=== PATIENT | male | born 1950 | race Caucasian/White ===

== ENCOUNTER 2016-05-25 12:58 | Emergency (ER) | payer BC ==
--- NOTE | 2016-05-25 13:26 | Emergency Department Record ---
History of Present Illness - General Chief complaint: Allergic Reaction Stated complaint: REACTION TO MEDS Time Seen by Provider: 05/25/16 13:23 Source: Patient Mode of Arrival: Ambulatory Limitations: No limitations - History of Present Illness Initial Comments: 65 yo male presents to ED with a CC of muscles aches and pain symptoms after taking (1) dose of atorvastatin that he was prescribed this week. Patient denies fevers, chills, or recent illness. Patient reports a history of resting tremor to the LUE, and elevated cholesterol. MD Complaint: Other Onset/Timin -: Days(s) Exposure: Medication Symptoms: Other (muscle aches) Severity: Moderate Treatment Prior to Arrival: Other (oral fluids.) Previous Allergy History: None - Related Data Home Medications Medication Instructions Recorded Confirmed Last Taken Aspirin [Adult Low Dose Aspirin EC] 81 mg PO DAILY 05/25/16 05/25/16 1 Day Ago Atorvastatin Calcium 20 mg PO DAILY 05/25/16 05/25/16 1 Day Ago Cholecalciferol (Vitamin D3) 2,000 unit PO DAILY 05/25/16 05/25/16 1 Day Ago [Vitamin D3] Propranolol HCl 10 mg PO DAILY 05/25/16 05/25/16 1 Day Ago Allergies Allergy/AdvReac Type Severity Reaction Status Date / Time amoxicillin Allergy CONSTIPATIO Verified 05/25/16 13:31 N atorvastatin Allergy HYPERSENSIT Verified 05/25/16 13:31 IVITY Review of Systems Constitutional: Denies: Chills, Fever, Malaise, Night sweats Eyes: Denies: Eye discharge, Eye pain ENT: Denies: Congestion, Ear pain, Epistaxis Respiratory: Denies: Cough, Dyspnea, Hemoptysis Cardiovascular: Denies: Chest pain, Dyspnea on exertion, Palpitations, Syncope Endocrine: Denies: Fatigue, Heat or cold intolerance Gastrointestinal: Denies: Abdominal pain, Nausea, Vomiting Genitourinary: Denies: Incontinence, Retention Musculoskeletal: Reports: Myalgia. Denies: Arthralgia, Back pain Skin: Denies: Bruising, Change in color Neurological: Denies: Abnormal gait, Confusion, Headache, Seizure Psychiatric: Denies: Anxiety Hematological/Lymphatic: Denies: Anemia, Blood Clots Past Medical History - SOCIAL HISTORY Smoking Status: Never smoker - RESPIRATORY Hx Respiratory Disorders: No - CARDIOVASCULAR Hx Cardio Disorders: No - NEURO Hx Neuro Disorders: Yes Hx Headaches: Yes (sinus h.a.) Comment:: c/o involuntary tremors Left arm/leg-on beta radha - GI Hx GI Disorders: Yes Hx Rectal Bleeding: Yes - Hx Genitourinary Disorders: No - ENDOCRINE Hx Endocrine Disorders: No - MUSCULOSKELETAL Hx Musculoskeletal Disorders: No - PSYCH Hx Psych Problems: No Family Medical History Hx Cancer: Grandparents *Cancer Comment: breast cancer Physical Exam - General General Appearance: Alert, Oriented x3, Cooperative, No acute distress Limitations: No limitations - Head Head exam: Atraumatic, Normocephalic, Normal inspection Head exam detail: negative: Abrasion, Contusion, Renee's sign, General tenderness, Hematoma, Laceration - Eye Eye exam: Normal appearance. negative: Conjunctival injection, Periorbital swelling, Periorbital tenderness, Scleral icterus - ENT Ear exam: negative: Auricular hematoma, Auricular trauma Nasal Exam: negative: Active bleeding, Discharge, Dried blood, Foreign body Mouth exam: negative: Drooling, Laceration, Muffled voice, Tongue elevation - Neck Neck exam: Normal inspection. negative: Meningismus, Tenderness - Respiratory Respiratory exam: Normal lung sounds bilaterally. negative: Rales, Respiratory distress, Rhonchi, Stridor - Cardiovascular Cardiovascular Exam: Regular rate, Normal rhythm, Normal heart sounds - GI/Abdominal GI/Abdominal exam: Soft. negative: Rebound, Rigid, Tenderness - Rectal Rectal exam: Deferred - exam: Deferred - Extremities Extremities exam: Normal inspection. negative: Calf tenderness, Pedal edema, Tenderness - Back Back exam: Denies: CVA tenderness (R), CVA tenderness (L) - Neurological Neurological exam: Alert, Normal gait, Oriented X3 - Psychiatric Psychiatric exam: Normal affect, Normal mood - Skin Skin exam: Normal color. negative: Abrasion Type of lesion: negative: abrasion Course - Reevaluation(s) Reevaluation #1: 05/25/16 14:22 Labs reviewed and are grossly unremarkable for an acute process. Reevaluation #2: 05/25/16 14:31 Patient was updated on all results, denies the need for analgesia at this time, and appears stable for discharge at this time. Medical Decision Making - Lab Data Result diagrams: 05/25/16 13:45 05/25/16 13:45 Disposition Disposition: Discharge Clinical Impression: Adverse effect of drug Disposition: Home, Self-Care Condition: (2) Stable Instructions: Adverse Drug Reaction (ED) Additional Instructions: Return to ED if your symptoms worsen or if you have any concerns. Discontinue your atorvastatin until seen by Dr. Yeager. Follow-up with Dr. Yeager in 3-5 days as directed. Forms: Patient Portal Access Time of Disposition: 14:32
[2016-05-25 13:54] LABS: HEMATOCRIT 41.6 % (42.0-52.0); HEMOGLOBIN 14.5 gm/dl (14.0-18.0); MEAN CELL VOLUME 89.3 fl (81-97); MEAN CORPUSCULAR HEMOGLOBIN 31.1 pg (27-33); MEAN CORPUSCULAR HGB CONC 34.9 g/dl (32-36); MEAN PLATELET VOLUME 9.3 fl (7.4-10.4); PLATELET COUNT 136 K/uL (130-400); RED BLOOD COUNT 4.66 M/uL (4.40-5.70); RED CELL DISTRIBUTION WIDTH 12.1 % (11.5-14.5); WHITE BLOOD COUNT W/O DIFF 6.3 K/uL (4.2-12.2)
[2016-05-25 14:06] LABS: ALB/GLOB RATIO 1.4 (1.1-1.8); ALBUMIN 4.3 gm/dL (3.5-5.0); ALKALINE PHOSPHATASE 70 U/L (38-126); ALT/SGPT 40 U/L (21-72); ANION GAP 11.7 (7-16); AST/SGOT 24 U/L (17-59); BILIRUBIN,TOTAL 1.03 mg/dL (0.2-1.3); BLOOD UREA NITROGEN 23 mg/dL (9-20); CARBON DIOXIDE 27.3 mmol/L (22-30); CREATINE PHOSPHOKINASE 94 U/L (55-170); EST GLOMERULAR FILTRATION RATE > 60 ml/min; GLUCOSE,RANDOM 102 mg/dL (70-110); TOTAL PROTEIN 7.3 gm/dL (6.3-8.2)
== END 2016-05-25 14:43 | disposition home or self-care (01) ==
LOC: ER 12:58
DX: T46.6X5A Adverse effect of antihyperlipidemic and antiarteriosclerotic drugs, initial encounter (principal); M79.1 Myalgia; E78.00 Pure hypercholesterolemia, unspecified
CPT/HCPCS: 80053; 82550; 85027; 99283